=== PATIENT | male | born 1955 | race Caucasian/White ===

== ENCOUNTER 2018-01-11 15:38 | Inpatient (IN) | payer OTHER ==
[~2018-01-11] VITALS: Ht 180.3 cm; Wt 97.8 kg
[~2018-01-11 15:38] MED LIST: ACIPHEX20 MG PO; LIALDA1.2 GM PO; MELOXICAM7.5 MG PO; MULTIVITAMIN1 EAC2 PO; PENTASA500 MG PO; PRINIVIL5 MG PO; ZESTRIL2.5 MG PO
[2018-01-11 16:12] LABS: BASOPHIL (%) 0.2 % (0-1); EOSINOPHIL (%) 0 % (0-5); HEMATOCRIT 47.7 % (38.0-50.0); IMMATURE GRANULOCYTE (%) 0.7 % (0.0-0.7); LYMPHOCYTE (%) 3.2 % (15-42); LYMPHOCYTE COUNT 0.6 K/uL (1.0-2.8); MCHC 31.4 G/DL (30.0-36.0); MCV 79.5 FL (86-99); MONOCYTE (%) 7.4 % (3-12); MONOCYTE COUNT 1.3 K/uL (0-0.8); NEUTROPHIL (%) 88.5 % (45-76); NEUTROPHIL COUNT 15.4 K/uL (1.8-6.4); PLATELET COUNT 300 K/uL (156-360); RBC DIS.WIDTH-CV 15.2 % (11.8-14.6); RBC DIS.WIDTH-SD 43.6 % (39-53); WHITE BLOOD COUNT 17.4 K/uL (4.1-10.2)
[2018-01-11 16:26] LABS: ALBUMIN 4.7 g/dL (3.2-4.8)
[2018-01-11 16:27] LABS: CHLORIDE 100 mEq/L (99-109); POTASSIUM 4.4 mEq/L (3.7-5.4); SODIUM 139 mEq/L (136-147)
[2018-01-11 16:29] LABS: GLUCOSE 124 mg/dL (70-99); TOTAL PROTEIN 8.1 g/dL (6.4-8.3)
[2018-01-11 16:31] LABS: TOTAL BILIRUBIN 1.8 mg/dL (0.0-1.0)
[2018-01-11 16:32] LABS: ALKALINE PHOSPHATASE 63 IU/L (3-129)
[2018-01-11 16:33] LABS: CREATININE 1.1 mg/dL (0.6-1.3); GFR ESTIMATE (CALCULATED) > 59 mL/min/ (58.99-99999)
[2018-01-11 16:34] LABS: AST (GOT) 23 IU/L (2-34); UREA NITROGEN (BUN) 15 mg/dL (9-23)
[2018-01-11 16:35] LABS: ALT (GPT) 19 IU/L (3-49)
[2018-01-11 16:36] LABS: LIPASE 8 U/L (1.0-51.0)
[2018-01-11] MEDS ORDERED: VITAMIN B-121000 MCG PO (18:22)
[2018-01-11 23:26] VITALS: BP 131/80
[2018-01-12 04:00] VITALS: BP 125/69
[2018-01-12 06:39] LABS: BASOPHIL (%) 0.2 % (0-1); EOSINOPHIL (%) 0.3 % (0-5); HEMATOCRIT 40.7 % (38.0-50.0); HEMOGLOBIN 12.6 G/DL (12.5-16.6); IMMATURE GRANULOCYTE (%) 0.2 % (0.0-0.7); LYMPHOCYTE (%) 7.3 % (15-42); LYMPHOCYTE COUNT 0.7 K/uL (1.0-2.8); MCH 25.2 PG (29.0-34.0); MCV 81.4 FL (86-99); MONOCYTE (%) 11.6 % (3-12); MONOCYTE COUNT 1.1 K/uL (0-0.8); NEUTROPHIL (%) 80.4 % (45-76); NEUTROPHIL COUNT 7.8 K/uL (1.8-6.4); PLATELET COUNT 250 K/uL (156-360); RBC DIS.WIDTH-CV 15.5 % (11.8-14.6); RBC DIS.WIDTH-SD 45.5 % (39-53); WHITE BLOOD COUNT 9.7 K/uL (4.1-10.2)
[2018-01-12 07:10] LABS: CHLORIDE 103 MEQ/L (99-109); GFR ESTIMATE (CALCULATED) > 59 mL/min/ (58.99-99999); GLUCOSE 113 mg/dL (70-99); POTASSIUM 4.6 MEQ/L (3.7-5.4); SODIUM 137 MEQ/L (136-147); UREA NITROGEN (BUN) 22 mg/dL (9-23)
[2018-01-12 08:12] VITALS: BP 118/67
[2018-01-12 13:07] VITALS: BP 118/67
[2018-01-12 16:37] VITALS: BP 128/74
[2018-01-12 20:11] VITALS: BP 127/70
[2018-01-13 00:01] VITALS: BP 131/74
[2018-01-13 03:46] VITALS: BP 123/70
[2018-01-13 06:46] LABS: BASOPHIL (%) 0.4 % (0-1); EOSINOPHIL (%) 2.5 % (0-5); EOSINOPHIL COUNT 0.1 K/uL (0-0.3); HEMOGLOBIN 11.6 G/DL (12.5-16.6); IMMATURE GRANULOCYTE (%) 0.2 % (0.0-0.7); LYMPHOCYTE (%) 17.8 % (15-42); MCH 25.2 PG (29.0-34.0); MCHC 30.5 G/DL (30.0-36.0); MCV 82.4 FL (86-99); MONOCYTE COUNT 0.8 K/uL (0-0.8); NEUTROPHIL (%) 65.1 % (45-76); NEUTROPHIL COUNT 3.7 K/uL (1.8-6.4); PLATELET COUNT 236 K/uL (156-360); RBC DIS.WIDTH-CV 15.5 % (11.8-14.6); RBC DIS.WIDTH-SD 46.5 % (39-53); RED BLOOD COUNT 4.61 M/uL (4.00-5.50); WHITE BLOOD COUNT 5.6 K/uL (4.1-10.2)
[2018-01-13 07:07] LABS: CHLORIDE 109 MEQ/L (99-109); CREATININE 0.9 MG/DL (0.6-1.3); GFR ESTIMATE (CALCULATED) > 59 mL/min/ (58.99-99999); SODIUM 141 MEQ/L (136-147); UREA NITROGEN (BUN) 23 mg/dL (9-23)
[2018-01-13 07:09] LABS: GLUCOSE 83 mg/dL (70-99)
[2018-01-13 08:14] VITALS: BP 132/71
[2018-01-13 16:40] VITALS: BP 141/82
[2018-01-13 20:10] VITALS: BP 144/90
[2018-01-14] VITALS: BP 164/91
[2018-01-14 03:24] VITALS: BP 139/81
[2018-01-14 06:15] LABS: BASOPHIL (%) 0.4 % (0-1); EOSINOPHIL (%) 3.9 % (0-5); EOSINOPHIL COUNT 0.2 K/uL (0-0.3); HEMATOCRIT 37.6 % (38.0-50.0); HEMOGLOBIN 11.4 G/DL (12.5-16.6); IMMATURE GRANULOCYTE (%) 0.4 % (0.0-0.7); LYMPHOCYTE (%) 18.2 % (15-42); MCH 24.9 PG (29.0-34.0); MCHC 30.3 G/DL (30.0-36.0); MCV 82.1 FL (86-99); MONOCYTE (%) 14.3 % (3-12); MONOCYTE COUNT 0.8 K/uL (0-0.8); NEUTROPHIL (%) 62.8 % (45-76); NEUTROPHIL COUNT 3.6 K/uL (1.8-6.4); PLATELET COUNT 226 K/uL (156-360); RBC DIS.WIDTH-CV 15.3 % (11.8-14.6); RBC DIS.WIDTH-SD 45.6 % (39-53); RED BLOOD COUNT 4.58 M/uL (4.00-5.50); WHITE BLOOD COUNT 5.7 K/uL (4.1-10.2)
[2018-01-14 06:39] LABS: ALBUMIN 3.3 G/DL (3.2-4.8); ALKALINE PHOSPHATASE 34 IU/L (3-129); ALT (GPT) 7 IU/L (3-49); AST (GOT) 9 IU/L (2-34); CHLORIDE 106 MEQ/L (99-109); GFR ESTIMATE (CALCULATED) > 59 mL/min/ (58.99-99999); GLUCOSE 99 mg/dL (70-99); POTASSIUM 4.2 MEQ/L (3.7-5.4); SODIUM 139 MEQ/L (136-147); TOTAL BILIRUBIN 0.8 MG/DL (0.0-1.0); TOTAL PROTEIN 5.4 G/DL (6.4-8.3); UREA NITROGEN (BUN) 13 mg/dL (9-23)
[2018-01-14 08:00] VITALS: BP 136/71; BP 162/74
[2018-01-14 11:53] VITALS: BP 130/80
[2018-01-14 14:25] LABS: C DIFF TOXIN POSITIVE (NEGATIVE)
[2018-01-14 16:00] VITALS: BP 124/74
[2018-01-14 20:17] VITALS: BP 158/84
[2018-01-15 00:58] VITALS: BP 141/87
[2018-01-15 04:36] VITALS: BP 131/79
[2018-01-15 06:41] LABS: BASOPHIL (%) 0.1 % (0-1); EOSINOPHIL (%) 3.7 % (0-5); EOSINOPHIL COUNT 0.3 K/uL (0-0.3); HEMATOCRIT 39.3 % (38.0-50.0); HEMOGLOBIN 12.1 G/DL (12.5-16.6); IMMATURE GRANULOCYTE (%) 0.4 % (0.0-0.7); LYMPHOCYTE (%) 18.3 % (15-42); LYMPHOCYTE COUNT 1.3 K/uL (1.0-2.8); MCH 24.7 PG (29.0-34.0); MCHC 30.8 G/DL (30.0-36.0); MCV 80.2 FL (86-99); MONOCYTE (%) 12.7 % (3-12); MONOCYTE COUNT 0.9 K/uL (0-0.8); NEUTROPHIL (%) 64.8 % (45-76); NEUTROPHIL COUNT 4.5 K/uL (1.8-6.4); PLATELET COUNT 263 K/uL (156-360); RBC DIS.WIDTH-CV 15.1 % (11.8-14.6); RBC DIS.WIDTH-SD 43.3 % (39-53)
[2018-01-15 07:05] LABS: CHLORIDE 104 MEQ/L (99-109); CREATININE 0.9 MG/DL (0.6-1.3); GFR ESTIMATE (CALCULATED) > 59 mL/min/ (58.99-99999); GLUCOSE 99 mg/dL (70-99); POTASSIUM 3.7 MEQ/L (3.7-5.4); SODIUM 139 MEQ/L (136-147); UREA NITROGEN (BUN) 8 mg/dL (9-23)
[2018-01-15 08:41] VITALS: BP 137/84
[2018-01-16 00:28] VITALS: BP 125/69
[2018-01-16 07:38] VITALS: BP 138/64
[2018-01-16 16:01] VITALS: BP 128/60
[2018-01-16] MEDS ORDERED: VANCOMYCIN125 MG/2.5 PO (16:08)
[2018-01-17] VITALS: BP 109/63
[2018-01-17 06:18] LABS: HEMATOCRIT 36.4 % (38.0-50.0); HEMOGLOBIN 11.3 G/DL (12.5-16.6); MCH 24.9 PG (29.0-34.0); MCV 80.4 FL (86-99); PLATELET COUNT 262 K/uL (156-360); RBC DIS.WIDTH-CV 15.2 % (11.8-14.6); RED BLOOD COUNT 4.53 M/uL (4.00-5.50); WHITE BLOOD COUNT 7.9 K/uL (4.1-10.2)
[2018-01-17 06:39] LABS: CHLORIDE 105 MEQ/L (99-109); CREATININE 0.9 MG/DL (0.6-1.3); GFR ESTIMATE (CALCULATED) > 59 mL/min/ (58.99-99999); GLUCOSE 96 mg/dL (70-99); POTASSIUM 4.1 MEQ/L (3.7-5.4); SODIUM 139 MEQ/L (136-147); UREA NITROGEN (BUN) 11 mg/dL (9-23)
[2018-01-17 07:39] VITALS: BP 116/62
[2018-01-17] MEDS ORDERED: VANCOMYCIN HCL125 MG PO (11:31)
[2018-01-17] MEDS ORDERED: MYLICON,MYLANTA80 MG PO (11:31)
== END 2018-01-17 16:52 | disposition home or self-care (01) | DRG 372 ==
LOC: EME 15:38 → EDOF 18:54 → 5SOUTH 18:54 → ENRESERV 19:09 → 5SOUTH 23:36 → ENPENDDIS 01-17 → 5SOUTH 01-17 16:52
PROVIDERS: Emergency Medicine; Hospitalist; Internal Medicine; Physician Assistant
DX: A04.72 Enterocolitis due to Clostridium difficile, not specified as recurrent (principal); K56.600 Partial intestinal obstruction, unspecified as to cause; K21.9 Gastro-esophageal reflux disease without esophagitis; R11.2 Nausea with vomiting, unspecified; I10 Essential (primary) hypertension; E11.9 Type 2 diabetes mellitus without complications; K57.30 Diverticulosis of large intestine without perforation or abscess without bleeding; E80.6 Other disorders of bilirubin metabolism; Z83.3 Family history of diabetes mellitus; Z90.49 Acquired absence of other specified parts of digestive tract
CPT/HCPCS: 74018; 74019; 74177; 80048; 80053; 81003; 83605; 83690; 85025; 85027; 87493; 99202; 99281; 99285; J1650; J2060; J2270; J2405; J7030; S0028